=== PATIENT | male | born 1950 | race Caucasian/White ===

== ENCOUNTER 2016-12-19 08:07 | Outpatient (CLI) | payer MEDICARE, OTHER ==
[2014-04-26 09:39] VITALS: BP 143/96
== END 2016-12-19 08:10 ==
LOC: POD 08:07
PROVIDERS: ATTEND Podiatrist Public Medicine
DX: E11.42 Type 2 diabetes mellitus with diabetic polyneuropathy (principal); B35.1 Tinea unguium; L60.0 Ingrowing nail; M79.674 Pain in right toe(s); M79.675 Pain in left toe(s)
CPT/HCPCS: 11721; G0463

== ENCOUNTER 2017-03-05 09:50 | Outpatient (CLI) | payer MEDICARE, OTHER ==
[2014-04-26 09:39] VITALS: BP 143/96
== END 2017-03-05 09:52 ==
LOC: LAB 09:50
PROVIDERS: ATTEND Family Medicine
DX: E11.65 Type 2 diabetes mellitus with hyperglycemia (principal); N40.0 Benign prostatic hyperplasia without lower urinary tract symptoms
CPT/HCPCS: 36415; 83036; 84153

== ENCOUNTER 2017-04-17 09:12 | Outpatient (CLI) | payer MEDICARE, OTHER ==
[2014-04-26 09:39] VITALS: BP 143/96
== END 2017-04-17 09:13 ==
LOC: POD 09:12
PROVIDERS: ATTEND Podiatrist Public Medicine
DX: E11.42 Type 2 diabetes mellitus with diabetic polyneuropathy (principal); B35.1 Tinea unguium; L60.0 Ingrowing nail; M79.674 Pain in right toe(s); M79.675 Pain in left toe(s)
CPT/HCPCS: 11721; G0463

== ENCOUNTER 2017-05-09 02:07 | Emergency (ER) | payer MEDICARE, OTHER ==
[2017-05-09] MEDS: DIAZEPAM 5 MG/ML DISP.SYRIN IM ONE (02:28)
[2017-05-09] MEDS: KETOROLAC TROMETHAMINE 30 MG/1ML VIAL IM ONE (02:29)
[2017-05-09] MEDS: DIAZEPAM 5 MG TABLET PO ONE (03:25)
--- NOTE | 2017-05-09 03:27 | ED Physician Documentation ---
General Adult - HISTORIAN Historian: patient - HPI Stated Complaint: Back Pain Chief Complaint: General Adult Onset: hours Timing: better Severity: moderate Further Comments: yes (Pt is a 66 yo male with right sided back pain/muscle spasm. Pt has no hx significant back pain, no acute injury or hx significant injury. Pt was loading a truck a few days ago.) - ROS CONST: no problems EYES/ENT: none CVS/RESP: none GI/: none MS/SKIN/LYMPH: back pain - PAST HX Past History: hypertension, other (DM, HLD) Surgeries/Procedures: other (appendectomy, hernia, tonsillectomy) Home Medications: Ambulatory Orders Medication Instructions Recorded Aspirin [Shaila] 325 mg PO AM 05/09/17 Diphenhydramine HCl [Vicks 50 mg PO PRN 05/09/17 Q[place]arquil Nighttime] - SOCIAL HX Smoking History: non-smoker - FAMILY HX Family History: No - VITAL SIGNS Vital Signs: Vital Signs Temp Pulse Resp BP Pulse Ox 97 F L 72 18 160/68 98 05/09/17 02:05/09/17 02:05/09/17 02:05/09/17 02:05/09/17 02:10 - REVIEWED ASSESSMENTS Nursing Assessment Reviewed: Yes Vitals Reviewed: Yes Progress - Progress Progress: Toradol 30 mg IM Diazepam 5 mg IM improved Diazepam 5 mg --> take x 1 prn if muscle spasm/pain persists over the next few hours. General Adult Physical Exam - PHYSICAL EXAM GENERAL APPEARANCE: moderate distress NECK: normal inspection, supple RESPIRATORY: no resp distress, chest non-tender CVS: reg rate & rhythm, heart sounds normal BACK: normal inspection, other (R lumbar muscle spasm) SKIN: warm/dry, normal color EXTREMITIES: non-tender, normal range of motion, no evidence of injury NEURO: oriented X3, motor nml, sensation nml Discharge Clincal Impression: Back pain Qualifiers: Back pain location: low back pain Chronicity: acute Back pain laterality: right Sciatica presence: without sciatica Qualified Code(s): M54.5 - Low back pain Referrals: Miguel Angel Benjamin MD [Primary Care Provider] - Home Medications: Ambulatory Orders Aspirin [Shaila] 325 mg PO AM 05/09/17 Diphenhydramine HCl [Vicks Qlearquil Nighttime] 50 mg PO PRN 05/09/17 Condition: Good Disposition: 01 HOME, SELF-CARE Decision to Admit: NO Decision Time: 03:16
[2017-05-09 03:56] VITALS: BP 140/68
== END 2017-05-09 03:25 | disposition home or self-care (01) ==
LOC: ED 02:07
DX: M54.5 Low back pain (principal); M54.30 Sciatica, unspecified side
CPT/HCPCS: J1885; J3360; 96372; 99283; 99284

== ENCOUNTER 2017-06-05 10:26 | Outpatient (CLI) | payer MEDICARE, OTHER | END 2017-06-05 10:28 | LOC: LAB 10:26 | PROVIDERS: ATTEND Family Medicine | DX: E11.65 Type 2 diabetes mellitus with hyperglycemia (principal); E78.00 Pure hypercholesterolemia, unspecified | CPT/HCPCS: 36415; 80061; 83036 ==

== ENCOUNTER 2017-07-17 09:24 | Outpatient (CLI) | payer MEDICARE, OTHER | END 2017-07-17 09:25 | LOC: POD 09:24 | PROVIDERS: ATTEND Podiatrist Public Medicine | DX: E11.42 Type 2 diabetes mellitus with diabetic polyneuropathy (principal); L60.0 Ingrowing nail; M79.675 Pain in left toe(s); M79.674 Pain in right toe(s); B35.1 Tinea unguium | CPT/HCPCS: 11721; G0463 ==

== ENCOUNTER 2017-09-09 14:37 | Outpatient (CLI) | payer MEDICARE, OTHER ==
[2017-09-09 15:04] LABS: BASOPHILS % 0.7 (0.0-1.5); EOSINOPHILS % 2.6 % (0.0-6.8); MEAN CORPUSCULAR HEMOGLOBIN 29.4 pg (28.0-34.0); MEAN CORPUSCULAR VOLUME 87.3 fl (80.0-100.0); MONOCYTES % 5.8 % (0.0-11.0); NEUTROPHILS # 4.4 # k/uL (1.4-7.7)
[2017-09-09 15:42] LABS: eGFR (African) > 60; eGFR (Non-African) > 60
[2017-09-10 00:40] LABS: VITAMIN D, 25-HYDROXY 11 ng/mL (30-100)
== END 2017-09-09 14:40 ==
LOC: LAB 14:37
PROVIDERS: ATTEND Family Medicine
DX: I10 Essential (primary) hypertension (principal); E11.65 Type 2 diabetes mellitus with hyperglycemia; R41.3 Other amnesia; E55.9 Vitamin D deficiency, unspecified
CPT/HCPCS: 36415; 80053; 82306; 82607; 83036; 85025

== ENCOUNTER 2017-10-16 09:19 | Outpatient (CLI) | payer MEDICARE, OTHER | END 2017-10-16 09:20 | LOC: POD 09:19 | PROVIDERS: ATTEND Podiatrist Public Medicine | DX: E11.42 Type 2 diabetes mellitus with diabetic polyneuropathy (principal); B35.1 Tinea unguium; L60.0 Ingrowing nail; M79.674 Pain in right toe(s); M79.675 Pain in left toe(s) | CPT/HCPCS: 11721; G0463 ==

== ENCOUNTER 2017-10-23 09:52 | Outpatient (CLI) | payer MEDICARE, OTHER ==
--- NOTE | 2017-10-23 11:08 | Diagnostic Imaging Report ---
PAMELLA RAMIREZ [facility] [address] [facility] [address] [place] [address]. [id number] Report Submission Date: Oct 23, 2017 10:56:14 AM EYEGLASS INSPECTOR Patient Study Name: ANASTASIA ANG Date: Oct 23, 2017 10:03:56 AM EYEGLASS INSPECTOR Modality Type: CR Gender: M Description: PELVIS : 50 Institution: [facility] Physician: PAMELLA RAMIREZ Examination: Plain film pelvis/hips History: Chronic discomfort. Comparison exams: None provided Findings: 5 views of the pelvis plate and hips demonstrates mild articular degenerative spurring. No fracture. No dislocation. Superior and inferior pubic rami and iliac wings are without abnormality. Impression: Mild degenerative changes. No acute osseous process. Electronically signed on Oct 23, 2017 10:56:14 AM EYEGLASS INSPECTOR by: Brent ORTEZ
== END 2017-10-23 09:53 ==
LOC: LAB 09:52 → RAD 09:53
PROVIDERS: ATTEND Family Medicine
DX: M25.551 Pain in right hip (principal)
CPT/HCPCS: 73521

== ENCOUNTER 2017-11-04 14:47 | Outpatient (CLI) | payer MEDICARE, OTHER ==
--- NOTE | 2017-11-04 15:38 | Diagnostic Imaging Report ---
PAMELLA RAMIREZ [facility] [address] [facility] [address] [place], [place]. [address] Report Submission Date: Nov 04, 2017 3:25:36 PM RESTAURANT EXPEDITOR Patient Study Name: ANASTASIA ANG Date: Nov 04, 2017 2:56:48 PM RESTAURANT EXPEDITOR Modality Type: CT\SR Gender: M Description: CT BRAIN W/O CONTRAST : 50 Institution: [facility] Physician: PAMELLA RAMIREZ Examination: CT head without contrast History: Headaches Comparison exam: None available Technique: Noncontrast head CT protocol. Findings: Ventricles and sulci are consistent for patient age. Cerebrocerebellar parenchyma demonstrates periventricular low attenuation consistent with small vessel disease. No evidence for parenchymal hemorrhage. No evidence for mass or mass effect. No midline shift. No extra axial fluid collections. Partial visualization of the paranasal sinuses demonstrates right maxillary mucous retention cyst. Mastoid air cells, orbits, skull and scalp without gross irregularity. Streak artifact from dental hardware. Impression: Age related changes. No acute parenchymal process. No hemorrhage. Electronically signed on Nov 04, 2017 3:25:36 PM RESTAURANT EXPEDITOR by: Brent ORTEZ
== END 2017-11-04 14:55 ==
LOC: RAD 14:47
PROVIDERS: ATTEND Family Medicine
DX: R51 Headache (principal)
CPT/HCPCS: 70450

== ENCOUNTER 2017-12-18 11:27 | Outpatient (CLI) | payer MEDICARE, OTHER | END 2017-12-18 11:30 | LOC: LAB 11:27 | PROVIDERS: ATTEND Family Medicine | DX: E11.65 Type 2 diabetes mellitus with hyperglycemia (principal) | CPT/HCPCS: 36415; 83036 ==

== ENCOUNTER 2018-01-22 09:15 | Outpatient (CLI) | payer MEDICARE, OTHER | END 2018-01-22 09:16 | LOC: POD 09:15 | PROVIDERS: ATTEND Podiatrist Public Medicine | DX: E11.42 Type 2 diabetes mellitus with diabetic polyneuropathy (principal); B35.1 Tinea unguium; L60.0 Ingrowing nail; M79.674 Pain in right toe(s); M79.675 Pain in left toe(s) | CPT/HCPCS: 11721; G0463 ==

== ENCOUNTER 2018-03-25 15:01 | Outpatient (CLI) | payer MEDICARE, OTHER | END 2018-03-25 15:02 | LOC: LAB 15:01 | PROVIDERS: ATTEND Family Medicine | DX: E11.65 Type 2 diabetes mellitus with hyperglycemia (principal) | CPT/HCPCS: 36415; 83036 ==

== ENCOUNTER 2018-04-23 09:33 | Outpatient (CLI) | payer MEDICARE, OTHER | END 2018-04-23 09:35 | LOC: POD 09:33 | PROVIDERS: ATTEND Podiatrist Public Medicine | DX: E11.42 Type 2 diabetes mellitus with diabetic polyneuropathy (principal); B35.1 Tinea unguium; L60.0 Ingrowing nail; M79.674 Pain in right toe(s); M79.675 Pain in left toe(s) | CPT/HCPCS: 11721; G0463 ==

== ENCOUNTER 2018-07-02 07:02 | Outpatient (CLI) | payer MEDICARE, OTHER ==
[2018-07-02 08:12] LABS: BASOPHILS % 0.6 (0.0-1.5); EOSINOPHILS % 3.6 % (0.0-6.8); MEAN CORPUSCULAR HEMOGLOBIN 30.9 pg (28.0-34.0); MONOCYTES % 6.7 % (0.0-11.0); NEUTROPHILS # 3.4 # k/uL (1.4-7.7)
== END 2018-07-02 07:03 ==
LOC: LAB 07:02
PROVIDERS: ATTEND Family Medicine
DX: E55.9 Vitamin D deficiency, unspecified (principal); E11.65 Type 2 diabetes mellitus with hyperglycemia; R63.5 Abnormal weight gain; E78.00 Pure hypercholesterolemia, unspecified; I10 Essential (primary) hypertension
CPT/HCPCS: 36415; 80053; 80061; 82306; 82565; 83036; 84443; 85025

== ENCOUNTER 2018-09-24 09:39 | Outpatient (CLI) | payer MEDICARE, OTHER ==
--- NOTE | 2018-09-25 08:43 | Diagnostic Imaging Report ---
PAMELLA RAMIREZ [facility] [address] [facility] [address] [address] Report Submission Date: Sep 24, 2018 10:39:02 AM CDT Patient Study Name: ANASTASIA ANG Date: Sep 24, 2018 9:42:18 AM CDT Modality Type: DX Gender: M Description: PELVIS : 50 Institution: [facility] Physician: PAMELLA RAMIREZ Examination: Plain film right hip History: PT STATES R HIP PAIN X 3 WEEKS. PT STATES NO KNOWN TRAUMA. (Hx) Comparison exams: 23 October 2017 Findings: 2 views of the right hip demonstrate normal cortical margins. No fracture no dislocation. Acetabular spurring. No soft tissue abnormality. Impression: Mild degenerative spurring. No acute appearing osseous abnormality. Electronically signed on Sep 24, 2018 10:39:02 AM CDT by: Brent ORTEZ
== END 2018-09-24 09:41 ==
LOC: RAD 09:39
PROVIDERS: ATTEND Family Medicine
DX: M25.551 Pain in right hip (principal)
CPT/HCPCS: 73502

== ENCOUNTER 2018-10-29 10:10 | Outpatient (CLI) | payer MEDICARE, OTHER | END 2018-10-29 10:12 | LOC: LAB 10:10 | PROVIDERS: ATTEND Family Medicine | DX: E11.65 Type 2 diabetes mellitus with hyperglycemia (principal) | CPT/HCPCS: 36415; 83036 ==

== ENCOUNTER 2019-02-12 09:11 | Outpatient (CLI) | payer MEDICARE, OTHER ==
--- NOTE | 2019-02-16 15:47 | OP Clinic Progress Note ---
SUBJECTIVE: Barrett Kelly is a 68-year-old male who presents today for a diabetic foot check and toenail trim. He has a history of first and second toenails being removed permanently on both feet. He denies any pain or problems at this time but needs help with his toenail trimming and checking his feet. He does not admit to any fevers, chills, nausea, vomiting, shortness of breath or chest pain. OBJECTIVE: Vitals: Temperature 97.7 degrees Fahrenheit, heart rate 76, respiration rate 18, blood pressure 214[address]. Pain level is 0/10. Vascular: DP and PT pulses 2+, bilaterally. Capillary refill time is less than 3 seconds to the toes bilaterally. There is no edema bilaterally. Dermatologic: The toenails are long, thick and discolored, toes #3 through #5 bilaterally. There are no toenails noted on toes #1 and #2 bilaterally. There are no concerning preulcerative lesions or open wounds of any kind and no hyperkeratoses. The feet look healthy and doing well. Musculoskeletal: 5/5 muscle strength about the ankle and subtalar joint bilaterally. There are no areas with pain on palpation. There are no other gross abnormalities noted bilaterally. Neurologic: Light touch sensation is intact to the toes bilaterally. ASSESSMENT AND PLAN: 1. Dermatophytosis of nail; B35.1. 2. Diabetes mellitus, type 2, with hyperglycemia; E11.65. PROCEDURE #1: Toenails #3 through #5 bilateral feet were debrided without incident. The patient tolerated the procedure well. Return to the clinic in 3 months, and the health clinic next door for follow-up of diabetic foot check and toenail trimming. The patient has no other concerns and is happy with his visit today. We will see him in 3 months. Thao EstevezP.M. (Dictated/Not Signed) Marie Job#: [id number] MTDD
== END 2019-02-12 09:13 ==
LOC: POD 09:11
PROVIDERS: ATTEND Podiatrist Foot & Ankle Surgery
DX: B35.1 Tinea unguium (principal); E11.9 Type 2 diabetes mellitus without complications
CPT/HCPCS: 11721

== ENCOUNTER 2019-02-16 08:34 | Outpatient (CLI) | payer MEDICARE, OTHER | END 2019-02-16 08:36 | LOC: LAB 08:34 | PROVIDERS: ATTEND Family Medicine | DX: E11.65 Type 2 diabetes mellitus with hyperglycemia (principal) | CPT/HCPCS: 36415; 83036 ==

== ENCOUNTER 2019-06-01 10:19 | Outpatient (CLI) | payer MEDICARE, OTHER ==
--- NOTE | 2019-06-01 11:33 | Diagnostic Imaging Report ---
TIGIST HERNANDEZ [facility] [address] [facility].[address] [address] Report Submission Date: Jun 01, 2019 11:32:25 AM CDT Patient Study Name: ANASTASIA ANG Date: Jun 01, 2019 10:30:05 AM CDT Modality Type: DX Gender: M Description: ANKLE 3 VIEWS OR MORE : 50 Institution: [facility] Physician: TIGIST HERNANDEZ Examination: Plain film left ankle History: PATIENT STATES WALKING AND HAD SUDDEN PAIN IN ACHILLES AREA X 2 DAYS Findings: 3 views of the left ankle demonstrates normal cortical margins. No fracture or dislocation. Talar dome is intact. Calcaneal spurs. No soft tissue swelling. No joint effusion. Impression: Calcaneal spurs. No acute osseous process. If suspect Achilles tendon abnormality, consider obtaining MRI to further evaluate. Electronically signed on Jun 01, 2019 11:32:25 AM CDT by: Brent ORTEZ
== END 2019-06-01 10:21 ==
LOC: RAD 10:19
PROVIDERS: ATTEND Podiatrist Foot & Ankle Surgery
DX: M76.62 Achilles tendinitis, left leg (principal)
CPT/HCPCS: 73610

== ENCOUNTER 2019-06-03 10:49 | Outpatient (CLI) | payer MEDICARE, OTHER | END 2019-06-03 10:52 | LOC: LAB 10:49 | PROVIDERS: ATTEND Family Medicine | DX: E11.9 Type 2 diabetes mellitus without complications (principal) | CPT/HCPCS: 36415; 83036 ==

== ENCOUNTER 2019-06-08 09:18 | Outpatient (CLI) | payer MEDICARE, OTHER ==
--- NOTE | 2019-06-10 13:27 | OP Clinic Progress Note ---
DATE OF VISIT: 06/08/19 SUBJECTIVE: Barrett Kelly is a 68-year-old male presenting to clinic today for follow-up of a recent diagnosis with x-ray and follow-up more important MRI and also clinical exam suggestive of a partial Achilles tendon tear. The patient is presenting today for follow-up as we were planning on getting him into a cast at this time. The patient states that his pain has greatly improved being in the boot so far. According to the staff who watched him walk in, he is not using the crutches but more so just keeping them with him as he is ambulating. He was told on the phone last week on to be non-weightbearing and the patient seems to have misunderstood that and has still just been doing less weight-bearing. The patient does state he is feeling better, however, and is wondering if he even needs a cast at this time. He does not admit to any fevers, chills, nausea, vomiting, shortness of breath or chest pain at this time. When I first saw the patient I saw him on June 01, and he stated he had pain in the left posterior ankle for about 2 weeks at that time. [place] the [place] in [place] pair of shoes and developed some pain in that area. At that time he admitted 3-4/10 pain that came and went at different times. The patient is also a diabetic patient which is of important note. OBJECTIVE: Vitals: Temperature 98.0, heart rate 77, respiration rate 18, blood pressure 142/76, O2 saturation is 95% on room air. Vascular: 2+ DP and PT pulses, left foot. Capillary refill time is less than 3 seconds to the toes, left foot. There is no edema noted, left foot. Dermatologic: There is no ecchymosis, erythema or significant warmth or open lesions of any kind noted, left lower extremity. Musculoskeletal: There is still mild 1/10 pain on palpation noted at the site of the partial tear in the Achilles tendon. The patient is able to have 5/5 muscle strength about the ankle and subtalar joint with dorsiflexion and plantar flexion, inversion and eversion, left lower extremity. This is not painful to the patient according to him with active plantar flexion against resistance. There is an obvious small palpable prominence noted in the proximal aspect of the partial tear of the Achilles tendon but there is still palpable Achilles tendon the entire way down. Neurologic: Light touch sensation is intact to the toes, left lower extremity. Gait exam: We had the patient put the boot on today and attempt utilizing the crutches without putting the left foot on the ground at all and the patient did not feel safe, and I did not feel safe having him do it very long at all today. The patient was not performing appropriate crutch-assisted gait today. ASSESSMENT AND PLAN: 1. Left partial Achilles tendon rupture/tear, less than 25%. The MRI that the patient obtained recently on June 02 demonstrated that there was Achilles tendinopathy with some partial tearing of the Achilles tendon. The patient also had some plantar fasciitis noted and myotendinous junction tear of the soleus along the Achilles myotendinous junction. I visualized the MRI myself as well and relayed to the patient the pathology of the Achilles tendon tear and recommended non-weightbearing. Upon the exam today, however, I do not feel safe that the patient can be in a cast and still get around safely with crutches and likely not even with a rollabout scooter. The patient does not feel he could do a wheelchair when I suggested that option. Based on the above findings and clinical exam today I feel that the safest and most appropriate treatment course for the patient will be to continue a tall Orthoboot to the left lower extremity with the assistance of crutches. Appropriate gait with crutch assistance was demonstrated by myself and then I watched the patient demonstrate that he was able to do so safely utilizing the left lower extremity only as balance and without putting weight on that left foot when using the crutches. He is able to do pretty well keeping weight off of that left side. The patient was also reminded that he may have an increased risk of rupture of the Achilles tendon due to the previous injury. We will plan on doing the Orthoboot for likely at least 2 to 4 if not 6 more weeks. We will probably start physical therapy either in 2 weeks or 4 weeks from now depending on how the patient is doing. I would like to start working on getting him stretched out once that pain and discomfort is mostly gone. I believe it will be safest if we wait at least the 4-6 weeks before working on starting to get out of the boot. I definitely want to incorporate physical therapy though beginning either in 2 or 4 weeks. Return to the health clinic in 2 weeks for follow-up and likely beginning of light physical therapy which will progress as he becomes more healed. The patient has no further questions and we will see him in 2 weeks. The patient feels confident that the boot is the right way to go and does not want to do the cast as he does not feel safe in it. These are all good reasons of why we will just do the boot at this time. Thao EstevezP.M. (Dictated/Not Signed) Marie Job#: [id number] MTDD
== END 2019-06-08 09:45 ==
LOC: POD 09:18
PROVIDERS: ATTEND Podiatrist Foot & Ankle Surgery
DX: S86.012A Strain of left Achilles tendon, initial encounter (principal); X50.9XXA Other and unspecified overexertion or strenuous movements or postures, initial encounter; Y92.834 Zoological garden (Zoo) as the place of occurrence of the external cause; Y93.01 Activity, walking, marching and hiking
CPT/HCPCS: 99213; G0463

== ENCOUNTER 2019-08-31 09:00 | Outpatient (CLI) | payer MEDICARE, OTHER | END 2019-08-31 09:10 | LOC: LAB 09:00 | PROVIDERS: ATTEND Family Medicine | DX: E11.9 Type 2 diabetes mellitus without complications (principal) | CPT/HCPCS: 36415; 83036 ==

== ENCOUNTER 2019-12-07 08:07 | Outpatient (CLI) | payer MEDICARE, OTHER | END 2019-12-07 08:12 | LOC: LAB 08:07 | PROVIDERS: ATTEND Family Medicine | DX: E78.00 Pure hypercholesterolemia, unspecified (principal); I10 Essential (primary) hypertension; E11.65 Type 2 diabetes mellitus with hyperglycemia | CPT/HCPCS: 36415; 80053; 80061; 83036; 85025 ==